=== PATIENT | female | born 1980 | race African-American/Black ===

== ENCOUNTER 2020-11-13 03:23 | Emergency (ER) | payer MEDICAID ==
[~2020-11-13] VITALS: Ht 175.3 cm; Wt 131.5 kg
[2020-11-13 03:40] VITALS: BP 142/90
[2020-11-13] MEDS ORDERED: ACETAMINOPHEN 500 MG TAB PO ONE (04:30)
[2020-11-13] MEDS ORDERED: IBUPROFEN 800 MG TAB PO ONE (04:30)
== END 2020-11-13 05:05 | disposition home or self-care (01) ==
LOC: ER 03:25
DX: K04.7 Periapical abscess without sinus (principal); Z20.828 Contact with and (suspected) exposure to other viral communicable diseases

== ENCOUNTER 2021-09-18 15:15 | Emergency (ER) | payer MEDICAID ==
[~2021-09-18] VITALS: Ht 175.3 cm; Wt 90.7 kg
[2021-09-18 16:41] VITALS: BP 134/94
[2021-09-18 16:41] LABS: Urine Bacteria FEW /hpf (None Seen); Urine Blood Negative /uL (Negative); Urine Mucus FEW (None Seen); Urine Specific Gravity 1.016 (1.001-1.035); Urine WBC 6 /hpf (0 - 5)
[2021-09-18 16:57] LABS: Basophils # (auto) 0 10 ^3/uL (0-0.2); Eosinophils # (auto) 0.1 10 ^3/uL (0-0.8); Eosinophils % (auto) 1.6 % (0.0-7.0); Hemoglobin 12.9 g/dL (12.2-16.2); Lymphocytes # (auto) 1.6 10 ^3/uL (0.4-5.4); Monocytes # (auto) 0.6 10 ^3/uL (0-1.3); Nucleated Red Blood Cells % 0.1 %
[2021-09-18 16:59] LABS: Basophils % (auto) 0.6 % (0.0-2.0); Hematocrit 39.7 % (36.0-46.0); Lymphocytes % (auto) 33.7 % (10.0-50.0); Mean Corpuscular Hemoglobin 25.9 pg (28.0-32.0); Mean Corpuscular Hgb Conc. 32.5 g/dL (32.0-36.0); Mean Corpuscular Volume 79.8 fL (80.0-100.0); Neutrophils # (auto) 2.4 10 ^3/uL (1.6-8.6); Neutrophils % (auto) 51.1 % (37.0-80.0); Red Blood Cells 4.98 10^6/uL (4.0-5.20); Red Cell Distribution Width 14.2 % (11.8-14.3); White Blood Cell 4.7 10^3/uL (4.4-10.8)
== END 2021-09-18 18:43 | disposition home or self-care (01) ==
LOC: ER 15:17
DX: O23.41 Unspecified infection of urinary tract in pregnancy, first trimester (principal); N39.0 Urinary tract infection, site not specified; Z3A.01 Less than 8 weeks gestation of pregnancy
CPT/HCPCS: 36415; 76801; 76817; 81001; 84702; 85025